=== PATIENT | female | born 1955 | race Caucasian/White ===

== ENCOUNTER 2019-09-23 11:30 | Day surgery (SDC) | payer MEDICARE, BC ==
[~2019-09-23] VITALS: Ht 167.6 cm; Wt 63.0 kg
[2019-09-23 11:03] VITALS: BP 130/78; PULSE 59; TEMP 16
[2019-09-23 12:15] VITALS: BP 125/71; PULSE 62; TEMP 97.9
[2019-09-23 12:30] VITALS: BP 122/77; PULSE 68
[2019-09-23 12:45] VITALS: BP 114/77; PULSE 54
[2019-09-23] MEDS ORDERED: LEVOXYL0.075 MG PO (13:07)
[2019-09-23] MEDS ORDERED: EVISTA 60MG60 MG/TAB PO (13:08)
[2019-09-23] MEDS ORDERED: MOBIC15 MG PO (13:09)
[2019-09-23] MEDS ORDERED: PROTONIX 40MG T40 MG PO (13:09)
[2019-09-23] MEDS ORDERED: ZOLOFT 25MG25 MG PO (13:10)
[2019-09-23] MEDS ORDERED: ULTRAM 50MG TAB50 MG PO (13:11)
[2019-09-23] MEDS ORDERED: PREDNISONE10 MG PO (13:18)
--- NOTE | 2019-09-23 13:30 | NUR ---
1215 TO [facility] [place] 4 VIA CART. PATIENT AMBULATED FROM CART TO CHAIR WITH SBA. VSS. 1230 TAKING TOAST, TEA AND WATER PO. DENIES COMPLAIN. PATIENT AWAKE AND ALERT. VSS. 1245 PT A&O X 4. DENIES COMPLAINT. 1255 IV DISCONTINUED. PATIENT TOLERATED WELL. DENIES COMPLAINT. DISCHARGE INSTRUCTIONS AND PATIENT EDUCATION GIVEN. PATIENT VERBALIZED UNSERSTAING. DR. SALGADO IN TO SPEAK WITH PATIENT. 1315 PATIENT DISCHARGED TO POV VIA WC. AND DAUGHTER PRESENT.
== END 2019-09-23 13:15 | disposition home or self-care (01) ==
LOC: SDCO 11:30
DX: K63.3 Ulcer of intestine (principal); K29.50 Unspecified chronic gastritis without bleeding; K50.80 Crohn's disease of both small and large intestine without complications; R12 Heartburn; Z90.49 Acquired absence of other specified parts of digestive tract; Z93.2 Ileostomy status
CPT/HCPCS: J2250; J3010; J7030

== ENCOUNTER → 2019-09-23 | Outpatient (CLI) | payer MEDICARE, BC ==
[~2019-09-23] MED LIST: EVISTA 60MG60 MG/TAB PO; LEVOXYL0.075 MG PO; MOBIC15 MG PO; PREDNISONE10 MG PO; PROTONIX 40MG T40 MG PO; ULTRAM 50MG TAB50 MG PO; ZOLOFT 25MG25 MG PO
== END ==
LOC: COL.RAD 07:30
DX: R10.9 Unspecified abdominal pain (principal); R12 Heartburn; Z90.49 Acquired absence of other specified parts of digestive tract
CPT/HCPCS: A9585

== ENCOUNTER 2021-11-16 23:04 | Inpatient (IN) | payer MEDICARE, BC ==
[~2021-11-16] VITALS: Ht 167.6 cm; Wt 64.0 kg
[2021-11-17 03:40] VITALS: BP 119/71; PULSE 64; TEMP 98.3
[2021-11-17 05:08] VITALS: BP 113/66; PULSE 68; TEMP 98.8
[2021-11-17] MEDS ORDERED: VITAMIN B11000 MCG/M IM (05:39)
[2021-11-17] MEDS ORDERED: PLAQUENIL 200M200 MG PO (05:41)
[2021-11-17 07:41] VITALS: BP 122/62; PULSE 81; TEMP 98.4
[2021-11-17 08:50] LABS: HEMATOCRIT 40.3 % (37.0-47.0); HEMOGLOBIN 13.7 g/dl (12.5-16.0); MEAN CELL VOLUME 86 fl (80.0-100.0); MEAN CORPUSCULAR HEMOGLOBIN 29 pg (27-31); MEAN CORPUSCULAR HGB CONC 34 g/dl (33.0-37.0); MEAN PLATELET VOLUME 10.7 fl (7.4-10.4); PLATELET COUNT 190 K/mm3 (130-400); REDCELL DISTRIBUTION WIDTH-CV 12.4 % (11.5-14.5)
[2021-11-17 09:08] LABS: CALCIUM 9.3 mg/dL (8.4-10.2); CREATININE, serum 0.75 mg/dL (0.57-1.11)
[2021-11-17] MEDS ORDERED: PRILOSEC 20MG20 MG PO (10:25)
[2021-11-17 11:31] VITALS: BP 132/75; PULSE 83; TEMP 98.5
[2021-11-17 16:02] VITALS: BP 137/75; PULSE 87; TEMP 99.1
[2021-11-17 20:33] VITALS: BP 128/70; PULSE 80; TEMP 98.6
[2021-11-18] VITALS (7 sets, daily range): BP systolic 105–132; BP diastolic 62–79; PULSE 69–108; TEMP 97.5–99.7
[2021-11-18 08:38] LABS: HEMATOCRIT 44.7 % (37.0-47.0); HEMOGLOBIN 14.7 g/dl (12.5-16.0); MEAN CELL VOLUME 90 fl (80.0-100.0); MEAN CORPUSCULAR HEMOGLOBIN 30 pg (27-31); MEAN CORPUSCULAR HGB CONC 33 g/dl (33.0-37.0); MEAN PLATELET VOLUME 11.3 fl (7.4-10.4); PLATELET COUNT 192 K/mm3 (130-400); RED BLOOD COUNT 4.97 M/mm3 (4.10-5.30); REDCELL DISTRIBUTION WIDTH-CV 12.6 % (11.5-14.5)
[2021-11-18 08:57] LABS: ALBUMIN 3.6 gm/dL (3.4-4.8); BILIRUBIN,TOTAL 7.7 mg/dL (0.2-1.2); CALCIUM 9.3 mg/dL (8.4-10.2); CREATININE, serum 0.82 mg/dL (0.57-1.11); POTASSIUM 3.7 mmol/L (3.5-4.5); TOTAL PROTEIN 6.9 gm/dL (6.2-8.1)
[2021-11-18 09:58] LABS: BAND 25 % (0-10); LYMPHOCYTE 27 % (20.0-51.0); NEUTROPHILS 25 % (42.0-75.2)
[2021-11-18 09:59] LABS: PLATELET ESTIMATE NORMAL (NORMAL)
[2021-11-19 04:16] VITALS: BP 116/66; PULSE 85; TEMP 98.6
[2021-11-19 07:43] LABS: HEMATOCRIT 43.6 % (37.0-47.0); HEMOGLOBIN 14.6 g/dl (12.5-16.0); MEAN CELL VOLUME 87 fl (80.0-100.0); MEAN CORPUSCULAR HEMOGLOBIN 29 pg (27-31); MEAN CORPUSCULAR HGB CONC 34 g/dl (33.0-37.0); MEAN PLATELET VOLUME 10.9 fl (7.4-10.4); PLATELET COUNT 230 K/mm3 (130-400); RED BLOOD COUNT 4.99 M/mm3 (4.10-5.30); REDCELL DISTRIBUTION WIDTH-CV 12.3 % (11.5-14.5)
[2021-11-19 08:00] VITALS: BP 125/79; PULSE 85; TEMP 98.3
[2021-11-19 08:02] LABS: ALBUMIN 3.4 gm/dL (3.4-4.8); BILIRUBIN,TOTAL 5.5 mg/dL (0.2-1.2); CALCIUM 9.9 mg/dL (8.4-10.2); CREATININE, serum 0.8 mg/dL (0.57-1.11); POTASSIUM 3.7 mmol/L (3.5-4.5); TOTAL PROTEIN 7.1 gm/dL (6.2-8.1)
[2021-11-19 08:41] LABS: BAND 26 % (0-10); EOSINOPHIL 1 % (0-4); LYMPHOCYTE 23 % (20.0-51.0); NEUTROPHILS 33 % (42.0-75.2); PLATELET ESTIMATE NORMAL (NORMAL)
[2021-11-19 12:00] VITALS: BP 121/76; PULSE 83; TEMP 97.8
[2021-11-19 16:00] VITALS: BP 121/68; PULSE 82; TEMP 97.9
[2021-11-19 20:00] VITALS: BP 112/68; PULSE 82; TEMP 98.3
[2021-11-19 23:56] VITALS: BP 107/54; PULSE 89; TEMP 98.2
[2021-11-20 04:00] VITALS: BP 129/73; PULSE 76; TEMP 98.1
[2021-11-20 08:00] VITALS: BP 151/82; PULSE 86; TEMP 97.8
[2021-11-20 11:25] VITALS: BP 121/69; PULSE 89; TEMP 97.6
[2021-11-20 17:30] VITALS: BP 123/75; PULSE 94; TEMP 97.6
[2021-11-20 18:00] VITALS: BP 138/78; PULSE 94; TEMP 97.6
[2021-11-20 18:30] VITALS: BP 132/76; PULSE 86; TEMP 97.6
[2021-11-21] VITALS: BP 100/60; PULSE 67; TEMP 97.8
[2021-11-21 03:58] VITALS: BP 120/70; PULSE 60; TEMP 98.6
[2021-11-21 07:11] VITALS: BP 110/60; PULSE 65; TEMP 97.8
[2021-11-21 11:40] VITALS: BP 128/69; PULSE 64; TEMP 97.7
== END 2021-11-21 17:50 | disposition home or self-care (01) | DRG 386 ==
LOC: MEDICAL 23:04 → SURG 11-17 03:19
PROVIDERS: Internal Medicine Gastroenterology; Surgery; ADMIT Surgery
PROC: 0DBB8ZX Excision of Ileum, Via Natural or Artificial Opening Endoscopic, Diagnostic (ICD-10-PCS; 2021-11-20)
PROC: 0DB68ZX Excision of Stomach, Via Natural or Artificial Opening Endoscopic, Diagnostic (ICD-10-PCS; principal; 2021-11-20 14:00)
PROC: 0DB68ZX Excision of Stomach, Via Natural or Artificial Opening Endoscopic, Diagnostic (ICD-10-PCS; 2021-11-20 14:00)
DX: K50.012 Crohn's disease of small intestine with intestinal obstruction (principal); K63.3 Ulcer of intestine; M19.90 Unspecified osteoarthritis, unspecified site; K21.9 Gastro-esophageal reflux disease without esophagitis; D72.821 Monocytosis (symptomatic); E03.9 Hypothyroidism, unspecified; M85.80 Other specified disorders of bone density and structure, unspecified site; Z79.890 Hormone replacement therapy; K31.7 Polyp of stomach and duodenum; K25.9 Gastric ulcer, unspecified as acute or chronic, without hemorrhage or perforation
CPT/HCPCS: A9575; C9113; J1170; J1650; J1720; J1885; J2270; J2405; J2550; J2704; J3010; J7120

== ENCOUNTER → 2021-11-29 | Outpatient (CLI) | payer MEDICARE, BC ==
[~2021-11-29] MED LIST changes: +PLAQUENIL 200M200 MG PO; +PRILOSEC 20MG20 MG PO; +VITAMIN B11000 MCG/M IM
== END ==
LOC: COL.RAD 13:26
DX: K59.89 Other specified functional intestinal disorders (principal); Z87.19 Personal history of other diseases of the digestive system; Z90.710 Acquired absence of both cervix and uterus; Z90.49 Acquired absence of other specified parts of digestive tract
CPT/HCPCS: Q9967